=== PATIENT | female | born 1985 | race Caucasian/White ===

== ENCOUNTER 2025-11-23 07:44 | Outpatient (OUT) | payer OTHER, SELFPAY ==
--- OUTSIDE RECORDS SUMMARY | 2025-11-23 07:50 | XMS_ITS | Clinical Summary ---
Author Organization [facility] Address [address] [place] [address] Care Team Providers Care Production Graphic Designer Name Role Phone Rosy Rust MD Primary Care Provider [phone] Allergies No known active allergies Medications MedicationSigDispense QuantityRefillsLast FilledStart DateEnd DateStatus FLUoxetine (PROZAC) 20 MG capsule Take 20 mg by mouth daily .Active metoclopramide (REGLAN) 10 MG tablet Take 1 (one) tablet (10 mg total) by mouth 3 (three) times a day with meals for 10 days . 30 tablet 09/06/2021ctive Active Problems ProblemNoted DateDiagnosed BkpeLvqrsdthwxi77/22/2021 Immunizations ImmunizationAdministration DatesNext DueINFLUENZA IIV4 6MO OR > FLUARIX/FLUZONE/AFLURIA [id number]() Social History Tobacco UseTypesPacks/DayYears UsedDateSmoking Tobacco: NeverSmokeless Tobacco: NeverAlcohol UseStandard Drinks/WeekCommentsNot Currently0 (1 standard drink = 0.6 oz pure alcohol)CommentsNoSex and Gender InformationValueDate RecordedSex Assigned at BirthNot on fileLegal KoeCxvmag86/17/2021 3:08 PM EDT Gender IdentityNot on fileSexual OrientationNot on file Last Filed Vital Signs Vital SignReadingTime TakenCommentsBlood Ogvuilvg971/8110 2:56 PM EDT Avfcw4244 2:56 PM HPGJzpjntxdfew98.5 ??C (97.7 ??F)09/06/2021 10:37 AM EDTRespiratory Zgxb1982 2:56 PM EDTOxygen Nqrksjfgtc961%09/06/2021 2:56 PM EDTInhaled Oxygen Concentration--Hoccxu34.1 kg (170 lb)09/06/2021 10:35 AM DGIKtxrsg107.8 cm (5' 10 )09/06/2021 10:35 AM EDTBody Mass Index24.391 10:35 AM EDT Plan of Treatment Health MaintenanceDue DateLast DoneCommentsDepression Screening/Follow-Up (PHQ-2/9)1997Varicella Vaccines (1 of 2 - 13+ 2-dose series)1998HIV Pozvegnao35/05/2000Hepatitis C Tzdodetmd59/05/2003Hepatitis B Vaccines (1 of 3 - 19+ 3-dose series)2004HPV Vaccines (1 - 3-dose SCDM series)2012 Wellness Visit/, 12/31/2019, 06/02/2012Pap Smear02/21/2024 02/20/2021, 12/31/2019Tetanus/Diphtheria/Pertussis (3 - Td or Tdap)12/07/2024 12/07/2014, 03/25/2013COVID-19 Vaccine (3 - 2024- season)/, 11/22/2020Influenza Vaccine (#1), 12/07/2014Cervical Cancer Zqolzhqfd23/29/2026HPV/Fkvolc62603/, 12/31/2019Zoster Vaccines (1 of 2)2035RSV Vaccines (1 - 1-dose 75+ series)2060HIB VaccinesAged OutNo longer eligible based on patient's age to complete this topicHepatitis A VaccinesAged OutNo longer eligible based on patient's age to complete this topic IPV VaccinesAged OutNo longer eligible based on patient's age to complete this topicMeningococcal ACWY VaccineAged OutNo longer eligible based on patient's age to complete this topicMeningococcal B VaccineAged OutNo longer eligible based on patient's age to complete this topicPneumococcal VaccineAged OutNo longer eligible based on patient's age to complete this topicRotavirus VaccinesAged Out No longer eligible based on patient's age to complete this topic Insurance * Guarantor: Jareth Segovia TypeRelation to PatientDate of BirthPhoneBilling AddressPersonal/KbxabmLims1985 [phone] (Home) [address] [address] Advance Directives For more information, please contact: [phone] * Full Code (Latest Code Status on File) Date ActivatedDate InactivatedComments08/16/2021 1:54 PM08/17/2021 3:42 PM Care Teams Team MemberRelationshipSpecialtyStart DateEnd Date Rosy Rust MD [facility] [facility] [place] [address] PCP - GeneralFamily Vbtfzzqh37/13/21
--- OUTSIDE RECORDS SUMMARY | 2025-11-23 07:50 | XMS_ITS | Clinical Summary ---
Author Organization [facility] Address [address], [address] [place] [address] Care Team Providers Care Batt Packer Name Role Phone Rosy Rust MD Primary Care Provider [phone] Allergies No known active allergies Medications MedicationSigDispense QuantityRefillsLast FilledStart DateEnd DateStatus Multiple Vitamin (MULTIVITAMIN ADULT PO) Take by mouthActive Probiotic Product (PROBIOTIC-10 PO) Take by mouthActive PANTOPRAZOLE SODIUM PO Take by mouthActive Chaste Tree (VITEX EXTRACT PO) Active MAGNESIUM PO Active Active Problems ProblemNoted DateDiagnosed DateAnxiety nzkpbcat05/08/2024Deviated nasal septum 06/01/2024Gastroesophageal reflux disease without jyamomsuiyo37/08/2024Hearing /08/2024Hypertrophy of wantxzc9406/01/20240375Cataifi68/08/2024reast lump 12/14/2019NSVD (normal spontaneous vaginal delivery) Resolved Problems ProblemNoted DateDiagnosed DateResolved Date38 weeks gestation of History of severe pre-esleprane84History of precipitous bzfipvgd76Normal labor Overview (10/07/2017): Advanced dilation 36 weeks gestation of yjfeswdwb80Supervision of normal ymlpfkwhd41Active labor at term01/12/163468/26/2015NSVD (normal spontaneous vaginal delivery)NSVD (normal spontaneous vaginal delivery)Laceration of vaginal wall or sulcus without perineal laceration during npqshbpg03SROM (spontaneous rupture of membranes)Hemolytic anemia, elevated liver enzymes, low platelets in jgdxwvndl62Other known or suspected abnormality, not elsewhere classified, affecting management of mother, antepartum condition or lygahbenvnur99Other known or suspected abnormality, not elsewhere classified, affecting management of mother, antepartum condition or obmcpfbepqoj10Suspected anomaly not foundFetal nufpecdxdob94Fetal nrswfmqolajas49Retained placenta or amniotic membranes with no hkrdnszsde93/26/2015 Immunizations ImmunizationAdministration DatesNext DueCOVID-19, Inactive, PFIZER PURPLE top, DILUTE for use, (age 12 y+)12/13/2020,11/22/2020Influenza Virus Vaccine 12/07/2014TDaP, ADACEL (age 10y-64y), BOOSTRIX (age 10y+), IM, 0.5mL12/07/2014, 03/25/2013 Family History Medical HistoryRelationNameCommentsHeart FailureFatherheart diseaseDiabetes Maternal GrandfatherMaternal grandfatherIDDMGlaucomaMaternal Grandmother HypertensionMotherMotherOtherOtherNo family h/o ovarian or breast cancer.Ovarian CancerPaternal GrandmotherPaternal grandmotherRelationNameStatusCommentsFather (Age 51)MIMaternal GrandfatherMaternal grandfatherDeceasedMaternal GrandmotherAliveMotherMotherAliveOtherOtherPaternal GrandfatherDeceasedPaternal GrandmotherPaternal grandmotherDeceasedSisterAlive Social History Tobacco UseTypesPacks/DayYears UsedDateSmoking Tobacco: NeverSmokeless Tobacco: Never Tobacco Cessation:Counseling Given: Not Answered Alcohol UseStandard Drinks/WeekCommentsYes0 (1 standard drink = 0.6 oz pure alcohol)1-2 monthlyAHC UtilitiesAnswerDate RecordedIn the past 12 months has the electric, gas, oil, or water company threatened to shut off services in your home?No06/03/2025PHQ-2AnswerDate RecordedPHQ-9 Total Evtoh338Hunger Vital SignAnswerDate RecordedWithin the past 12 months, you worried that your food would run out before you got the money to buymore.Never true06/03/2025 Within the past 12 months, the food you bought just didn't last and you didn't have money to get more.Never true06/03/2025PRAPARE - TransportationAnswerDate RecordedIn the past 12 months, has lack of transportation kept you from medical appointments or from getting medications?No06/03/2025In the past 12 months, has lack of transportation kept you from meetings, work, or from getting things needed for daily living?No06/03/2025Housing Stability Vital SignAnswerDate RecordedIn the last 12 months, was there a time when you were not able to pay the mortgage or rent on time?No06/03/2025In the past 12 months, how many times have you moved where you were living?t any time in the past 12 months, were you homeless or living in a senior living (including now)?No06/03/2025 Food InsecurityAnswerDate RecordedWithin the past 12 months, you worried that your food would run out before you got the money to buymore.Within the past 12 months, the food you bought just didn't last and you didn't have money to get more.CommentsNoSex and Gender InformationValue Date RecordedSex Assigned at SumukEmfvua53/07/2025 9:48 AM EDTLegal SexFemale 01/06/2013 11:23 PM ESTGender IdentityNot on fileSexual OrientationNot on file Last Filed Vital Signs Vital SignReadingTime TakenCommentsBlood Lntexlzn601/6607 9:48 AM EDT Vawxf550005/25/2019 10:10 AM JDSTeyphcdgtxu28.7 ??C (98.1 ??F)10/10/2017 7:54 AM ESTRespiratory Vild637505/25/2019 10:10 AM EDTOxygen Lgptqtcesr94%05/25/2019 10:10 AM EDTInhaled Oxygen Concentration--Mshrel83.5 kg (186 lb 3.2 oz)06/03/2025 9:48 AM MQMGncwhm196.8 cm (5' 10 )06/03/2025 9:48 AM EDTBody Mass Index26.72 06/03/2025 9:48 AM EDT Plan of Treatment DateTypeDepartmentCare Team (Latest Contact Info)Jhltjuwdszk49/15/2026 10:40 AM EDTOffice Visit [facility] Part of [address] [place], [place] [id number] Rosalia Castro APRN - [place] [place] [address] annualHealth MaintenanceDue DateLast DoneCommentsVaricella vaccine (1 of 2 - 13+ 2-dose series)1998Hepatitis C ytrlbx8510/29/2003Hepatitis B vaccine (1 of 3 - 19+ 3-dose series)2004Diabetes fkkhjr2710/29/2020DTaP/Tdap/Td vaccine (3 - Td or Tdap)/, 03/25/2013Flu vaccine (#1)/07/2021, 12/07/2014COVID-19 Vaccine ( season)/, 09/02/2021, 12/13/2020, Additional history lqumbeLfujvk96/05/2025Depression Qkpepm7606/03/2026 06/03/2025, 06/03/2025reast cancer /, 04/11/2021, 12/31/2019, Additional history existsPap smear/06/2024, 05/29/2023, 02/20/2021, Additional history existsCervical cancer nhcynd4306/01/2029HPV (without or with Pap), 05/29/2023, 02/20/2021, Additional history existsHIV gpmhhsQnsidkxad71/06/2017, 05/03/2014Depression Monitoring Ateagnenttoz84/10/2025, 06/03/2025HPV vaccine (No Doses Required)Completed Hepatitis A vaccineAged OutNo longer eligible based on patient's age to complete this topicHib vaccineAged OutNo longer eligible based on patient's age to complete this topicMeningococcal (ACWY) vaccineAged OutNo longer eligible based on patient's age to complete this topicMeningococcal B vaccineAged OutNo longer eligible based on patient's age to complete this topicPneumococcal 0-49 years VaccineAged OutNo longer eligible based on patient's age to complete this topic Polio vaccineAged OutNo longer eligible based on patient's age to complete this topic Procedures Procedure NamePriorityDate/TimeAssociated DiagnosisCommentsMAM JAYDEN DIGITAL SCREEN XRTEDPOFZIybeoze55/15/2024 1:57 PM EDT Fibrocystic breast changes of both breasts HUMAN PAPILLOMAVIRUS (HPV) DNA PROBE THIN PREP HIGH MHPJQqylmdr00/08/2024 12:00 AM EDT BOX PACKER UOBMHQEEQeslzsx27/08/2024 12:00 AM EDT HIV CCYZVSYxgpqdv63/06/2017 9:00 AM EDT from Last 3 Months or Most Recently Relevant to Health Maintenance Results * MANFRED JAYDEN DIGITAL SCREEN BILATERAL (07/09/2024 1:57 PM EDT)Anatomical Region LateralityModalityBreastBilateralMammographySpecimen (Source)Anatomical Location / LateralityCollection Method / VolumeCollection TimeReceived Time 07/09/2024 5:34 PM EDT Impressions 07/09/2024 5:36 PM EDT No evidence of malignancy. Advise annual screening mammography. BREAST DENSITY SUMMARY C: The breasts are heterogeneously dense which may obscure small masses. BI-RADS 2 BIRADS: BIRADS - CATEGORY 2 Benign Findings. ??Normal interval follow-up is recommended in 12 months. OVERALL ASSESSMENT - BENIGN A letter of notification will be sent to the patient regarding the results. The [employer] recommends annual mammograms for women 40 years and older. Narrative 07/09/2024 5:36 PM EDT EXAMINATION: SCREENING DIGITAL BILATERAL MAMMOGRAM WITH TOMOSYNTHESIS, 07/09/2024 TECHNIQUE: Screening mammography was performed with tomosynthesis including MLO and CC views of the bilateral breasts. Computer aided detection was used for the interpretation of this exam. COMPARISON: 11 Apr 2021; 08 May 2019 HISTORY: Screening. Negative family history of breast cancer. ??Depo-Provera usage x2 years. ??No hormonal replacement therapy. ??Left breast biopsy in the past, benign. FINDINGS: Both breasts are composed of heterogeneously dense parenchyma. ??No skin thickening, nipple contour changes, suspicious calcifications, suspicious masses, areas of architectural distortion or significant interval changes are noted. ??Biopsy marker is again noted in the lateral posterior left breast. Authorizing ProviderResult TypeResult StatusKathleen E Pool VITREO RETINAL SURGEON - [facility] MAMMOGRAPHY ORDERABLESFinal Result * Human papillomavirus (HPV) DNA probe thin prep high risk (06/01/2024 12:00 AM EDT)ComponentValueRef RangeTest MethodAnalysis TimePerformed AtPathologist SignatureSpecimen DescriptionCERVICAL FFLFRIPA50/08/2024 12:00 AM EDThompson Aerospace LABORATORIESHPV Sample.THIN PREP06/01/2024 12:00 AM EDThompson Aerospace LABORATORIESHPV, Genotype 16Not DetectedNot Bmvonwot56/08/2024 12:00 AM EDThompson Aerospace LABORATORIES HPV, Genotype 18Not DetectedNot Ehievnwl97/08/2024 12:00 AM EDThompson Aerospace LABORATORIESHPV, High Risk OtherNot DetectedNot Tieudcew61/08/2024 12:00 AM EDFetchnotesHPV, Vkepyozdjlvpbz91/08/2024 12:00 AM EDTMERCSports MatchMaker LABORATORIESComment: This test amplifies and detects DNA of 14 high-risk HPV types associated with cervical cancer and its precursor lesions (HPV types 16,18, 31, 33, 35, 39, 45, 51, 52, 56, 58, 59, 66, and 68). ? Sensitivity may be affected by specimen collection methods, stage of infection, and the presence of interfering substances. Results should be interpreted in conjunction with other available laboratory and clinical data. A negative high-risk HPV result does not exclude the possibility of future cytologic HSIL or underlying CIN2-3 or cancer. ? This test is intended for medical purposes only and is not valid for the evaluation of suspected sexual abuse or for other forensic purposes. Specimen (Source)Anatomical Location / LateralityCollection Method / Volume Collection TimeReceived TimeCERVICAL AQKAYJIO64/08/2024 Narrative Authorizing ProviderResult TypeResult StatusKathleen E Matthew VITREO RETINAL SURGEON - CNEMATOLOGY ORDERABLESFinal ResultPerforming OrganizationAddressCity/State/ZIP CodePhone Number [facility] [address] [place] [address], [facility] [phone] [place] [id number], [facility] [phone] * BOX PACKER Cytology (06/01/2024 12:00 AM EDT)ComponentValueRef RangeTest Method Analysis TimePerformed AtPathologist SignatureCytology ReportPath Number: [id number] DIAGNOSIS Imaged ThinPrep Pap - Cervical (1 monolayer slide): Specimen Adequacy: ? Satisfactory for evaluation. ? - Endocervical/transformation zone component present. Descriptive Diagnosis: ? Negative for intraepithelial lesion or malignancy. Reactive cellular changes. Cytotech Screener: ??EY Electronically Signed Out ? Mykel Stark. /06/05/2024 Procedure/Addendum HPV Procedure Report ? Date Ordered: ? 06/02/2024 ? Status: Signed Out ? Date Complete: ? 06/03/2024 ? By: System Interface ? Date Reported: ? 06/03/2024 ? Sample: ??HPV Type 16 ?Result: ?? Not Detected ?Ref Range: (Not Detected) Sample: ??HPV Type 18 ?Result: ?? Not Detected ?Ref Range: (Not Detected) Sample: ??Other High Risk HPV ?Result: ?? Not Detected ?Ref Range: (Not Detected) Sample: ??HPV Interp ?Result: ? Ref Range: (Not Detected) This test amplifies and detects DNA of 14 high-risk HPV types associated with cervical cancer and its precursor lesions (HPV types 16,18, 31, 33, 35, 39, 45, 51, 52, 56, 58, 59, 66, and 68). ? Sensitivity may be affected by specimen collection methods, stage of infection, and the presence of interfering substances. Results should be interpreted in conjunction with other available laboratory and clinical data. A negative high-risk HPV result does not exclude the possibility of future cytologic HSIL or underlying CIN2-3 or cancer. ? This test is intended for medical purposes only and is not valid for the evaluation of suspected sexual abuse or for other forensic purposes[place] [address] ?? Source of Specimen: A: Imaged ThinPrep Pap - Cervical (1 monolayer slide) HPV Reflex?......................HPV Regardless Clinical History Z01.419 Routine highballer exam without abnormal findings Z11.51 Encounter for screening for HPV LMP: ??05/06/2024 Processing Lab: [address] [address] Interpretation performed at [address] [address] This Pap Test has been evaluated with the assistance of the ThinPrep Pap Test Imaging System. The Pap smear is a screening test primarily for squamous epithelial lesions, which is subject to both false negative and false positive results. Your patient should be reminded to consult you immediately if she experiences any suspicious signs or symptoms, regardless of her Pap smear result. GYNECOLOGIC CYTOLOGY REPORT Patient Name: KOKIАЛЕКСАНДРD[facility]ION [facility] Rec: [id number] [facility] ??[facility] ANATOMIC PATHOLOGY [address] [place] [address]. ??Sarah, [place] [phone] bon [facility] LABSSpecimen (Source)Anatomical Location / LateralityCollection Method / VolumeCollection TimeReceived Time CERVICAL MNKBIXAY83/08//07/2024 6:24 AM EDT Narrative Authorizing ProviderResult TypeResult StatusKathleen E Pool VITREO RETINAL SURGEON - CNM PATHOLOGY/CYTOLOGY ORDERABLESFinal ResultPerforming OrganizationAddress City/State/ZIP CodePhone Number [facility] [address] [phone] [facility] * HIV Screen (02/28/2017 9:00 AM EDT)ComponentValueRef RangeTest MethodAnalysis TimePerformed AtPathologist SignatureHIV Ag/RzMQXXWZJSOSZQB15/06/2017 11:16 PM EDTMHPN LABComment: ? No laboratory evidence of HIV infection. ??If acute HIV infection is suspected, consider testing for HIV-1 RNA. This is an FDA approved immunoassay that detects HIV-1 and HIV-2 antibodies and HIV-1 p24 antigen to screen for infection with HIV-1 or HIV-2. Performed at [address] [address] Specimen (Source)Anatomical Location / LateralityCollection Method / Volume Collection TimeReceived Time02/28/2017 9:00 AM EDT02/28/2017 12:54 PM EDT Narrative Authorizing ProviderResult TypeResult StatusKathleen E Pool VITREO RETINAL SURGEON - CNMIMMUNOLOGY ORDERABLESFinal ResultPerforming OrganizationAddressCi/State/ZIP CodePhone Number [facility] [address] [place] [address] [facility] from Last 3 Months or Most Recently Relevant to Health Maintenance Insurance Advance Directives * Full Code (Latest Code Status on File) Date ActivatedDate YvfkwgjwxibHkhxapaa28/14/2017 1:19 AM10/10/2017 2:05 PM * Full Code Date ActivatedDate EwgqxbvwcjkWgjqhfhv77/13/2017 6:07 PM10/07/2017 6:47 PM * Full Code Date ActivatedDate InactivatedComments12/06/2014 6:36 AM12/07/2014 4:48 PM * Full Code Date ActivatedDate InactivatedComments12/06/2014 5:09 AM12/06/2014 6:36 AM * Full Code Date ActivatedDate InactivatedComments03/23/2013 11:40 AM03/25/2013 5:48 PM Care Teams Team MemberRelationshipSpecialtyStart DateEnd Date Rosy Rust MD [facility] [place] [address] PCP - GeneralFamily Medicine12/04/22
[2025-11-23 08:19] LABS: Hematocrit 41.5 % (36.0-48.0); Hemoglobin 13.6 g/dL (12.0-16.0); Immature Granulocytes Abs Auto 0.01 10^3/uL (0.00-0.03); Immature Granulocytes Pct Auto 0.2 % (0.0-0.5); Lymphocytes Absolute Auto 2.2 10^3/uL (1.2-3.8); Mean Corpuscular HGB Conc 32.8 g/dL (29.9-35.2); Mean Corpuscular Hemoglobin 29.9 pg (26.7-34.0); Mean Corpuscular Volume 91.2 fL (81.0-99.0); Platelet Count 240 10^3/uL (150-450); Red Blood Count 4.55 10^6/uL (4.20-5.40); White Blood Count 6.2 10^3/uL (4.0-11.0)
[2025-11-23 08:35] LABS: Alanine Aminotransferase 41 U/L (14-59); Albumin Globulin Ratio 1.1; Albumin Level 3.8 g/dL (3.4-5.0); Alkaline Phosphatase 68 U/L (46-116); Anion Gap 10.7; Aspartate Amino Transferase 25 U/L (15-37); Blood Urea Nitrogen 14.0 mg/dL (7.0-18.0); Calcium 8.7 mg/dL (8.5-10.1); Carbon Dioxide 30.4 mmol/L (21.0-32.0); Chloride 103 mmol/L (98-107); Cholesterol 207 mg/dL (<=200); Estimated GFR (African America >60 (>=60 mL/min/1.73m^2); Estimated GFR (Non-African Ame 54 (>=60 mL/min/1.73m^2); Globulin 3.4 g/dL; Glucose 93 mg/dL (74-106); HDL Cholesterol 47 mg/dL (40-60); Potassium 4.1 mmol/L (3.5-5.1); Sodium 140 mmol/L (136-145); Thyroid Stimulating Hormone 1.995 uIU/mL (0.358-3.740); Total Protein 7.2 g/dL (6.4-8.2); Triglycerides 134 mg/dL (<=150); VLDL CHOLESTEROL 26.8 mg/dL
== END 2025-11-23 07:45 | disposition home or self-care (01) ==
LOC: LAB 07:47
PROVIDERS: PCP Family Medicine; Visit Provider Family Medicine
DX: Z00.00 Encounter for general adult medical examination without abnormal findings (principal); F41.1 Generalized anxiety disorder; L65.9 Nonscarring hair loss, unspecified
CPT/HCPCS: 36415; 80053; 80061; 84439; 84443; 85025